=== PATIENT | female | born 1990 | race Two or more races ===

== ENCOUNTER → 2024-10-10 08:50 | Outpatient (CLI) | payer OTHER | END | disposition home or self-care (01) | LOC: PRENATAL 08:50 | PROVIDERS: ATTEND Obstetrics & Gynecology Maternal & Fetal Medicine | DX: O36.80X0 Pregnancy with inconclusive fetal viability, not applicable or unspecified (principal); Z36.82 Encounter for antenatal screening for nuchal translucency; O99.891 Other specified diseases and conditions complicating pregnancy; Z3A.12 12 weeks gestation of pregnancy ==

== ENCOUNTER 2024-12-05 15:32 | Outpatient (CLI) | payer OTHER | END 2024-12-05 15:33 | disposition home or self-care (01) | LOC: PRENATAL 15:32 | PROVIDERS: ATTEND Obstetrics & Gynecology Maternal & Fetal Medicine | DX: O36.80X0 Pregnancy with inconclusive fetal viability, not applicable or unspecified (principal); O26.859 Spotting complicating pregnancy, unspecified trimester; O34.30 Maternal care for cervical incompetence, unspecified trimester; O10.019 Pre-existing essential hypertension complicating pregnancy, unspecified trimester; O24.419 Gestational diabetes mellitus in pregnancy, unspecified control; Z3A.10 10 weeks gestation of pregnancy ==

== ENCOUNTER 2025-01-17 01:15 | Inpatient (IN) | payer OTHER ==
[~2025-01-17] VITALS: Ht 162.6 cm; Wt 69.9 kg
[2025-01-17 00:43] VITALS: BP 129/81
[2025-01-17] MEDS ORDERED: SYNTHROID150 MCG PO (01:22)
[2025-01-17] MEDS ORDERED: PRENATAL TABLE1 EAC1 PO (01:22)
[2025-01-17] MEDS ORDERED: NIFEDIPINE 30 MG TAB.SA.OSM PO ONE (01:30)
[2025-01-17] MEDS ORDERED: RINGERS SOLUTION,LACTATED 1,000 ML IV SCH (01:30)
[2025-01-17 02:05] LABS: HEMOGLOBIN 12.5 g/dL (12.0-15.00); MEAN CELL VOLUME 95.2 fL (80.00-100.00); MEAN CORPUSCULAR HEMOGLOBIN 32.2 pg (27.00-32.0); MEAN CORPUSCULAR HGB CONC 33.8 g/dl (32.0-36.0); PLATELET COUNT 235 K/uL (150-450); RED BLOOD COUNT 3.89 M/uL (4.00-6.00); RED CELL DISTRIBUTION WIDTH 13.2 % (11.5-14.5); URINE APPEARANCE Clear; URINE BILIRRUBIN Negative (NEGATIVE); URINE BLOOD Small; URINE COLOR Yellow; URINE GLUCOSE Negative (NEGATIVE); URINE KETONE Negative (NEGATIVE); URINE LEUKOCYTE Small; URINE NITRATE Negative; URINE PROTEIN Negative (NEGATIVE); URINE UROBILINOGEN 0.2 E.U./dl
[2025-01-17 02:08] LABS: URINE BACTERIA 854.3 uL (0.0-1933); URINE EPITHELIAL CELLS 15.6 uL (0.0-38.8); URINE WBC 36.8 uL (0.0-23.2)
[2025-01-17 04:05] VITALS: BP 100/63
[2025-01-17] MEDS ORDERED: NIFEDIPINE 30 MG TAB.SA.OSM PO NR (08:00)
[2025-01-17] MEDS ORDERED: LEVOTHYROXINE SODIUM 150 MCG TABLET PO SCH (09:00)
[2025-01-17] MEDS ORDERED: BETAMETHASONE ACETATE,SOD PHOS 30 MG/5 ML ML IM SCH ×2 (09:25→21:00)
[2025-01-17] MEDS ORDERED: BETAMETHASONE ACETATE,SOD PHOS 30 MG/5 ML ML ONE (09:29)
[2025-01-17 12:37] VITALS: BP 102/65
[2025-01-17] MEDS ORDERED: CEFAZOLIN SODIUM 1,000 MG VIAL IV SCH (12:45)
[2025-01-17 15:17] VITALS: BP 107/58
[2025-01-17 19:33] VITALS: BP 101/58
[2025-01-17 23:12] VITALS: BP 103/62
[2025-01-18 03:05] VITALS: BP 101/63
[2025-01-18 07:14] VITALS: BP 111/61
[2025-01-18 11:05] VITALS: BP 106/59
[2025-01-18 15:01] VITALS: BP 104/61
[2025-01-18 18:55] VITALS: BP 105/72
[2025-01-18 23:14] VITALS: BP 104/63
[2025-01-19 04:07] VITALS: BP 111/63
[2025-01-19 11:37] VITALS: BP 117/76
[2025-01-19 15:00] VITALS: BP 110/73
[2025-01-19 20:19] VITALS: BP 116/73
[2025-01-19 23:18] VITALS: BP 98/51
[2025-01-20] VITALS (7 sets, daily range): BP systolic 105–114; BP diastolic 61–69; O2SAT 96–98
[2025-01-20] MEDS ORDERED: NIFEDIPINE 30 MG TAB.SA.OSM PO SCH (02:45)
[2025-01-21 03:28] VITALS: BP 106/56; O2SAT 96
[2025-01-21 07:25] VITALS: BP 98/60
[2025-01-21 11:42] VITALS: BP 97/58
[2025-01-21 15:34] VITALS: BP 107/71
[2025-01-21 19:41] VITALS: BP 104/63
[2025-01-21 23:34] VITALS: BP 110/67
[2025-01-22 04:02] VITALS: BP 106/62
[2025-01-22 07:22] VITALS: BP 116/64
[2025-01-22 11:34] VITALS: BP 105/67
== END 2025-01-22 14:35 | disposition home or self-care (01) | DRG 832 ==
LOC: LDR 01:15
PROVIDERS: ADMIT Obstetrics & Gynecology Obstetrics; ATTEND Obstetrics & Gynecology Obstetrics
PROC: 4A1HXCZ Monitoring of Products of Conception, Cardiac Rate, External Approach (ICD-10-PCS; principal; 2025-01-17)
PROC: BY4CZZZ Ultrasonography of Second Trimester, Single Fetus (ICD-10-PCS; 2025-01-17)
PROC: BU4CZZZ Ultrasonography of Uterus and Ovaries (ICD-10-PCS; 2025-01-17)
DX: O60.02 Preterm labor without delivery, second trimester (principal); O23.42 Unspecified infection of urinary tract in pregnancy, second trimester; O36.8130 Decreased fetal movements, third trimester, not applicable or unspecified; Z3A.26 26 weeks gestation of pregnancy; O26.842 Uterine size-date discrepancy, second trimester; O26.852 Spotting complicating pregnancy, second trimester

== ENCOUNTER → 2025-02-27 10:43 | Outpatient (CLI) | payer OTHER ==
[~2025-02-27 10:43] MED LIST: PRENATAL TABLE1 EAC1 PO; SYNTHROID150 MCG PO
== END | disposition home or self-care (01) ==
LOC: PRENATAL 10:43
PROVIDERS: ATTEND Obstetrics & Gynecology Maternal & Fetal Medicine
DX: O26.849 Uterine size-date discrepancy, unspecified trimester (principal); O36.8199 Decreased fetal movements, unspecified trimester, other fetus; O43.90 Unspecified placental disorder, unspecified trimester; Z3A.32 32 weeks gestation of pregnancy

== ENCOUNTER 2025-03-06 00:07 | Inpatient (IN) | payer OTHER ==
[2025-03-05 23:00] VITALS: BP 125/77
[~2025-03-06] VITALS: Ht 162.6 cm; Wt 1.8 kg
[2025-03-06] MEDS ORDERED: BETAMETHASONE ACETATE,SOD PHOS 30 MG/5 ML ML IM ONE (00:15)
[2025-03-06] MEDS ORDERED: PRENATAL CAPLE1 EAC1 PO (00:15)
[2025-03-06] MEDS ORDERED: RINGERS SOLUTION,LACTATED 1,000 ML IV SCH (00:15)
[2025-03-06] MEDS ORDERED: NIFEDIPINE 30 MG TAB.SA.OSM PO SCH (00:15)
[2025-03-06] MEDS ORDERED: SYNTHROID175 MCG PO (00:16)
[2025-03-06 00:33] LABS: URINE APPEARANCE Clear; URINE BILIRRUBIN Negative (NEGATIVE); URINE BLOOD Trace; URINE COLOR Yellow; URINE GLUCOSE Negative (NEGATIVE); URINE KETONE Negative (NEGATIVE); URINE LEUKOCYTE Trace; URINE NITRATE Negative; URINE PROTEIN 30 (NEGATIVE); URINE UROBILINOGEN 0.2 E.U./dl
[2025-03-06 00:34] LABS: URINE BACTERIA 423.4 uL (0.0-1933); URINE RBC 13.1 uL (0.0-20.8); URINE WBC 41.3 uL (0.0-23.2)
[2025-03-06] MEDS ORDERED: AMPICILLIN SODIUM 2,000 MG VIAL IV ONE (00:45)
[2025-03-06 00:53] LABS: HEMATOCRIT 35.5 % (36.0-45.00); MEAN CORPUSCULAR HGB CONC 35.2 g/dl (32.0-36.0); PLATELET COUNT 224 K/uL (150-450); RED BLOOD COUNT 3.78 M/uL (4.00-6.00); RED CELL DISTRIBUTION WIDTH 13.5 % (11.5-14.5)
[2025-03-06 00:57] LABS: HEMOGLOBIN 12.5 g/dL (12.0-15.00); INR < 0.93; PARTIAL THROMBOPLASTIN TIME 25.9 SECONDS (22.0-34.0); PROTHROMBIN TIME 9.8 SECONDS (9.0-11.5)
[2025-03-06 01:08] LABS: URINE CAST 0.73 uL (0.0-1.40); URINE MUCUS NEGATIVE
[2025-03-06 01:09] LABS: ALBUMIN 2.9 gm/dL (3.4-5.0); BILIRUBIN TOTAL 0.37 mg/dL (0.3-1.2); GFR 206.34; GLOBULINA 3.3 G/DL (2.4-3.5); POTASSIUM 3.3 mEq/L (3.5-5.1); TOTAL PROTEIN 6.2 gm/dL (6.4-8.2)
[2025-03-06 01:10] LABS: CREATININE SERUM 0.36 mg/dL (0.55-1.02)
[2025-03-06 03:08] VITALS: BP 91/51
[2025-03-06] MEDS ORDERED: TERBUTALINE SULFATE 1 MG/ML AMPUL ONE (04:12)
[2025-03-06] MEDS ORDERED: TERBUTALINE SULFATE 1 MG/ML AMPUL SUBCUTANEO ONE (04:30)
[2025-03-06] MEDS ORDERED: AMPICILLIN SODIUM 1,000 MG VIAL IV SCH (05:00)
[2025-03-06 06:20] VITALS: BP 97/67; O2SAT 97
[2025-03-06] MEDS ORDERED: LEVOTHYROXINE SODIUM 175 MCG TABLET PO SCH (10:00)
[2025-03-06 11:39] VITALS: BP 127/72
[2025-03-06] MEDS ORDERED: MAGNESIUM SULFATE IN WATER 500 ML IV SCH (14:45)
[2025-03-06 15:11] VITALS: BP 92/59
[2025-03-06 19:00] VITALS: BP 97/58
[2025-03-06 23:23] VITALS: BP 102/62
[2025-03-06] MEDS ORDERED: MAGNESIUM SULFATE IN WATER 0.04 GM/ML IV.SOLN IV ONE (23:23)
[2025-03-07] MEDS ORDERED: BETAMETHASONE ACETATE,SOD PHOS 30 MG/5 ML ML IM ONE (00:15)
[2025-03-07 04:00] VITALS: BP 106/60
[2025-03-07 07:27] VITALS: BP 103/56
[2025-03-07 11:24] VITALS: BP 100/62
[2025-03-07 15:12] VITALS: BP 109/59
[2025-03-07 19:04] VITALS: BP 117/73
[2025-03-07] MEDS ORDERED: TERBUTALINE SULFATE 1 MG/ML AMPUL SUBCUTANEO ONE (22:00)
[2025-03-07 23:15] VITALS: BP 112/64
[2025-03-08 03:12] VITALS: BP 92/42
[2025-03-08] MEDS ORDERED: ERYTHROMYCIN BASE OPHT 1GM EACH TUBE OP ONE (05:41)
[2025-03-08] MEDS ORDERED: OXYTOCIN 10 UNITS/ML VIAL ONE (05:41)
[2025-03-08] MEDS ORDERED: MORPHINE SULFATE 4 MG/ML CARTRIDGE IV PRN (07:45)
[2025-03-08 10:03] VITALS: BP 112/69
[2025-03-08 16:23] VITALS: BP 115/73
[2025-03-09 01:00] VITALS: BP 112/75
[2025-03-09] MEDS ORDERED: OxyCODONE HCL 5 MG TABLET (ROXICODONE) PO PRN (06:45)
[2025-03-09] MEDS ORDERED: ACETAMINOPHEN 500 MG GEL..CAP PO PRN (06:45)
[2025-03-09 08:00] VITALS: BP 137/82
[2025-03-09 18:23] VITALS: BP 119/78
[2025-03-10 01:00] VITALS: BP 111/75
[2025-03-10 08:10] VITALS: BP 110/71
[2025-03-10] MEDS ORDERED: LEVOTHYROXINE SODIUM 112 MCG TABLET PO STA (14:51)
[2025-03-11 00:08] VITALS: BP 138/80
[2025-03-11] MEDS ORDERED: LEVOTHYROXINE SODIUM 112 MCG TABLET PO SCH (06:00)
== END 2025-03-11 07:21 | disposition home or self-care (01) | DRG 786 ==
LOC: LDR → OB/GYN 03-08 07:47
PROVIDERS: ADMIT Obstetrics & Gynecology Obstetrics; ATTEND Obstetrics & Gynecology Obstetrics
PROC: BY4FZZZ Ultrasonography of Third Trimester, Single Fetus (ICD-10-PCS; 2025-03-06)
PROC: 4A1HXCZ Monitoring of Products of Conception, Cardiac Rate, External Approach (ICD-10-PCS; 2025-03-06)
PROC: 10D00Z1 Extraction of Products of Conception, Low, Open Approach (ICD-10-PCS; principal; 2025-03-08 07:00)
DX: O42.013 Preterm premature rupture of membranes, onset of labor within 24 hours of rupture, third trimester (principal); O60.14X0 Preterm labor third trimester with preterm delivery third trimester, not applicable or unspecified; Z3A.33 33 weeks gestation of pregnancy; Z37.0 Single live birth

== ENCOUNTER 2025-03-17 16:27 | Emergency (ER) | payer OTHER ==
[~2025-03-17] VITALS: Ht 162.6 cm; Wt 67.1 kg
[~2025-03-17 16:27] MED LIST changes: +PRENATAL CAPLE1 EAC1 PO; +SYNTHROID175 MCG PO
[2025-03-17] MEDS ORDERED: SYNTHROID112 MCG PO (16:46)
[2025-03-17] MEDS ORDERED: CEFAZOLIN SODIUM 1,000 MG VIAL ONE (17:43)
[2025-03-17] MEDS ORDERED: KETOROLAC TROMETHAMINE 30 MG VIAL ONE (17:43)
[2025-03-17] MEDS ORDERED: CEFTRIAXONE SODIUM 1,000 MG VIAL IM ONE (17:45)
[2025-03-17] MEDS ORDERED: KETOROLAC TROMETHAMINE 30 MG VIAL IM ONE (17:45)
[2025-03-17] MEDS ORDERED: DUI500 PO (17:49)
== END 2025-03-17 17:55 ==
LOC: ER 16:28
DX: O86.01 Infection of obstetric surgical wound, superficial incisional site (principal); Z91.013 Allergy to seafood; L53.9 Erythematous condition, unspecified